=== PATIENT | male | born 1945 | race Caucasian/White ===

== ENCOUNTER 2016-09-30 09:19 | Day surgery (SDC) | payer MEDICARE, OTHER ==
--- NOTE | ~2016-09-30 | EGD ---
EGD REPORT [facility] [address]. [address] NAME: CHANDLER VAIL : [birth year] STATUS : REG [facility]#: [id number] AGE: 70 ADM/REG DATE : 09/30/16 MR#: [id number] REPORT SERV DATE: 09/30/16 DICTATED BY: MICHELLE MISHRA DATE: 09/30/16 REPORT STATUS : Draft TRANSCRIBED BY: [facility] DATE: 09/30/16 [facility] Patient Name: Chandler Vail Date of : 1945 Attending MD: MICHELLE MISHRA MD Procedure Date No Time: 09/30/2016 Procedure: Colonoscopy Indications: High risk colon cancer surveillance: Personal history of colonic polyps Referring MD: Michel Tejeda Medicines: as per anesthesia Complications: No immediate complications. Procedure: Pre-Anesthesia Assessment: - ASA Grade Assessment: III - A patient with severe systemic disease. After I obtained informed consent, the scope was passed under direct vision. Throughout the procedure, the patient's blood pressure, pulse, and oxygen saturations were monitored continuously. The PCF [id number] was introduced through the anus and advanced to the cecum, identified by appendiceal orifice and ileocecal valve. The colonoscopy was somewhat difficult due to significant looping and a tortuous colon. The patient tolerated the procedure. The quality of the bowel preparation was fair. Findings: The perianal and digital rectal examinations were normal. A few small and large-mouthed diverticula were found in the sigmoid colon. Internal hemorrhoids were found during endoscopy and were mild. Impression: - Diverticulosis in the sigmoid colon. - Internal hemorrhoids. Recommendation: - Repeat colonoscopy in 5 years for surveillance. Procedure Code(s): --- Professional --- 71222, Colonoscopy, flexible, proximal to splenic flexure; diagnostic, with or without collection of specimen(s) by brushing or washing, with or without colon decompression (separate procedure) Diagnosis Code(s): --- Professional --- K64.8, Other hemorrhoids EGD REPORT [facility] [address] [place] [address] [address] NAME: CHANDLER VAIL : [birth year] STATUS : REG [facility]#: [id number] AGE: 70 ADM/REG DATE : 09/30/16 MR#: [id number] REPORT SERV DATE: 09/30/16 DICTATED BY: MICHELLE MISHRA. DATE: 09/30/16 REPORT STATUS : Draft TRANSCRIBED BY: [employer] DATE: 09/30/16 K57.30, Diverticulosis of large intestine without perforation or abscess without bleeding Z86.010, Personal history of colonic polyps CPT copyright 2013 [employer]. All rights reserved. The codes documented in this report are preliminary and upon residential team leader review may be revised to meet current compliance requirements. MICHELLE MISHRA MD 09/30/2016 11:42 AM This report has been signed electronically. Number of Addenda: 0 Note Initiated On: 09/30/2016 11:06 AM Scope Withdrawal Time 0 hours 7 minutes 53 seconds [address] [place] [address] [address]
[~2016-09-30 09:19] MED LIST: ADVIL PO; ASAB PO; FLEX PO; ISOPTIN SR240 MG PO; MAGOX4 PO; PRIN20 PO; SAW PALMETT2 PO; VERELAN180 MG PO
== END 2016-09-30 23:59 | disposition home or self-care (01) ==
LOC: DMU 09:19
PROVIDERS: Internal Medicine Gastroenterology
PROC: 0DJD8ZZ Inspection of Lower Intestinal Tract, Via Natural or Artificial Opening Endoscopic (ICD-10-PCS; principal; 2016-09-30 10:30)
DX: Z12.11 Encounter for screening for malignant neoplasm of colon (principal); K64.8 Other hemorrhoids; I10 Essential (primary) hypertension; H54.7 Unspecified visual loss; G47.33 Obstructive sleep apnea (adult) (pediatric); M43.22 Fusion of spine, cervical region; H47.292 Other optic atrophy, left eye; K57.30 Diverticulosis of large intestine without perforation or abscess without bleeding; Z86.010 Personal history of colon polyps; Z88.0 Allergy status to penicillin; Z88.2 Allergy status to sulfonamides; Z88.1 Allergy status to other antibiotic agents; Z88.5 Allergy status to narcotic agent; Z79.899 Other long term (current) drug therapy; Z79.82 Long term (current) use of aspirin